=== PATIENT | female | born 1940 | race Caucasian/White ===

== ENCOUNTER 2017-11-27 17:07 | Observation (INO) | payer MEDICARE, OTHER ==
[~2017-11-27] VITALS: Ht 165.1 cm; Wt 68.0 kg
[~2017-11-27 17:07] MED LIST: AUGM875T PO; CITRTAB7 PO; LEXA20TA PO; LIPI10TA PO; OMEP20TA39 PO
[2017-11-27 17:18] VITALS: BP 160/69; PULSE 71; RESP 18; TEMP 98.8; O2SAT 98
[2017-11-27 17:30] VITALS: BP 160/69; PULSE 71; RESP 18; TEMP 98.8; O2SAT 99
[2017-11-27] MEDS ORDERED: ACETAMINOPHEN 325 MG TAB PO ONE (17:30)
[2017-11-27] MEDS ORDERED: SODIUM CHLORIDE 0.9% FLUSH 10 ML FLUSH IVF PRN (17:30)
[2017-11-27 17:33] VITALS: BP_SYST 148; BP_SYST 156; BP_SYST 178; BP_DIAS 67; BP_DIAS 70; BP_DIAS 72; PULSE 68; RESP 18; RESP 20; O2SAT 99
--- NOTE | 2017-11-27 17:49 | PD ---
HPI Chief Complaint: Altered Mental Status Time Seen by Provider: 17:27 Travel History International Travel<30 days: No Contact w/Intl Traveler<30days: No Traveled to known affect area: No History of Present Illness HPI 77-year-old female presents emergency department via [facility] from home complaining of confusion and weakness that started after eating today approximately 4p today. Says that [facility] was called approximately 1 hour later. Upon my evaluation, patient says her symptoms are resolved. She had an episode yesterday as well with similar symptoms that resolved spontaneously. At that point, patient was walking out to the garage taking care of her dogs when she started having similar symptoms. says that patient had to sit down where the symptoms resolved spontaneously over several minutes. describes the episodes as patient developing a headache and being confused. Also demonstrated the inability to walk. Again, her symptoms resolved spontaneously today. Says she was recently prescribed lisinopril for her blood pressure and she started this medication yesterday. Patient suspects that maybe this is the cause of her symptoms. Patient says that she fell hitting her head and neck in August. Says she was evaluated however, did not have imaging of her neck. Says that she golfed Tuesday and this may have exacerbated her head and neck pain. Patient says that she is in [place] 4-5 months the year and returns home to [place] for the rest of the year. 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 She has a neurologist in [place] he follows her tremors. Says she had global amnesia several years ago that resolved spontaneously. [facility] Past Medical History Cardiovascular Problems: Yes (HTN ) Tubal Ligation: Yes Past Surgical History Other Surgery: Yes (BILAT BREAST BX) Social History Alcohol Use: Yes (nightly) Tobacco Use: No Substance Use: No Allergies-Medications (Allergen,Severity, Reaction): Coded Allergies: ibuprofen (Unverified Allergy, Severe, Respiratory Failure, 04/12/17) Reported Meds & Prescriptions Reported Meds & Active Scripts Active Reported Escitalopram (Escitalopram Oxalate) 10 Mg Tab 10 Mg PO DAILY Lisinopril 10 Mg Tab 10 Mg PO DAILY Review of Systems Except as stated in HPI: all other systems reviewed are Neg Physical Exam Narrative GENERAL: Well-developed well-nourished in no apparent distress, slight resting head tremor SKIN: Focused skin assessment warm/dry. HEAD: Atraumatic. Normocephalic. EYES: Pupils equal and round. No scleral icterus. No injection or drainage. ENT: No nasal bleeding or discharge. Mucous membranes pink and moist. NECK: Trachea midline. No JVD. No midline tenderness CARDIOVASCULAR: Regular rate and rhythm. No murmur appreciated. RESPIRATORY: No accessory muscle use. Clear to auscultation. Breath sounds equal bilaterally. GASTROINTESTINAL: Abdomen soft, non-tender, nondistended. Hepatic and splenic margins not palpable. MUSCULOSKELETAL: No obvious deformities. No clubbing. No cyanosis. No edema. NEUROLOGICAL: Awake and alert. No obvious cranial nerve deficits. Motor grossly within normal limits. Normal speech. Negative pronator drift, rapid alternating movements, heel to stratton, finger-nose normal. Grade 5 out of 5 upper lower extremities PSYCHIATRIC: Appropriate mood and affect; insight and judgment normal. Data Data Last Documented VS Vital Signs Date Time Temp Pulse Resp B/P (MAP) Pulse Ox O2 Delivery O2 Flow Rate FiO2 11/27/17 19:29 15 11/27/17 19:19 98.2 67 169/74 (105) 98 Room Air Orders Orders Electrocardiogram (11/27/17 17:27) Ammonia (11/27/17 17:27) Complete Blood Count With Diff (11/27/17 17:27) Comprehensive Metabolic Panel (11/27/17 17:27) Creatine Kinase (Cpk) (11/27/17 17:27) Prothrombin Time / Inr (Pt) (11/27/17 17:27) Act Partial Throm Time (Ptt) (11/27/17 17:27) Troponin I (11/27/17 17:27) Thyroid Stimulating Hormone (11/27/17 17:27) Urinalysis - C+S If Indicated (11/27/17 17:27) Ct Brain W/O Iv Contrast(Rout) (11/27/17 17:27) Ecg Monitoring (11/27/17 17:27) Iv Access Insert/Monitor (11/27/17 17:27) Oximetry (11/27/17 17:27) Sodium Chloride 0.9% Flush (Ns Flush) (11/27/17 17:30) Acetaminophen (Tylenol) (11/27/17 17:30) Orthostatic Vital Signs (11/27/17 17:27) Ct Cerv Spine W/O Contrast (11/27/17 ) Aspirin Chew (Aspirin Chew) (11/27/17 19:15) Ondansetron Inj (Zofran Inj) (11/27/17 19:45) Admit Order (Ed Use Only) (11/27/17 19:32) Labs Laboratory Tests Test 11/27/17 17:59 White Blood Count 6.5 TH/MM3 Red Blood Count 4.08 MIL/MM3 Hemoglobin 13.9 GM/DL Hematocrit 40.4 % Mean Corpuscular Volume 99.1 FL Mean Corpuscular Hemoglobin 34.2 PG Mean Corpuscular Hemoglobin Concent 34.5 % Red Cell Distribution Width 13.3 % Platelet Count 180 TH/MM3 Mean Platelet Volume 9.2 FL Neutrophils (%) (Auto) 50.8 % Lymphocytes (%) (Auto) 37.8 % Monocytes (%) (Auto) 8.0 % Eosinophils (%) (Auto) 3.0 % Basophils (%) (Auto) 0.4 % Neutrophils # (Auto) 3.3 TH/MM3 Lymphocytes # (Auto) 2.4 TH/MM3 Monocytes # (Auto) 0.5 TH/MM3 Eosinophils # (Auto) 0.2 TH/MM3 Basophils # (Auto) 0.0 TH/MM3 CBC Comment DIFF FINAL Differential Comment Prothrombin Time 10.1 SEC Prothromb Time International Ratio 1.0 RATIO Activated Partial Thromboplast Time 30.8 SEC Blood Urea Nitrogen 15 MG/DL Creatinine 0.95 MG/DL Random Glucose 88 MG/DL Total Protein 7.5 GM/DL Albumin 3.7 GM/DL Calcium Level 8.6 MG/DL Alkaline Phosphatase 80 U/L Aspartate Amino Transf (AST/SGOT) 17 U/L Alanine Aminotransferase (ALT/SGPT) 19 U/L Total Bilirubin 0.3 MG/DL Sodium Level 134 MEQ/L Potassium Level 3.9 MEQ/L Chloride Level 100 MEQ/L Carbon Dioxide Level 25.6 MEQ/L Anion Gap 8 MEQ/L Estimat Glomerular Filtration Rate 57 ML/MIN Ammonia 13 MCMOL/L Total Creatine Kinase 98 U/L Troponin I LESS THAN 0.02 NG/ML Thyroid Stimulating Hormone 3rd Gen 1.170 uIU/ML MDM Medical Decision Making Medical Screen Exam Complete: Yes Emergency Medical Condition: Yes Differential Diagnosis TIA, vasovagal symptoms, dehydration, UTI, hypotension Narrative Course 77-year-old female with a history of hypertension and anxiety presents emergency department via [facility] from home complaining of confusion and weakness that started after eating today approximately 4p today. Says that [facility] was called approximately 1 hour later. Upon my evaluation, patient says her symptoms are resolved. She had an episode yesterday as well with similar symptoms that resolved spontaneously. At that point, patient was walking out to the garage taking care of her dogs when she started having similar symptoms. says that patient had to sit down where the symptoms resolved spontaneously over several minutes. describes the episodes as patient developing a headache and being confused. Also demonstrated the inability to walk. Again, her symptoms resolved spontaneously today. Says she was recently prescribed lisinopril for her blood pressure and she started this medication yesterday. Patient suspects that maybe this is the cause of her symptoms. Patient says that she fell hitting her head and neck in August. Says she was evaluated however, did not have imaging of her neck. Says that she golfed Tuesday and this may have exacerbated her head and neck pain. Patient says that she is in [place] 4-5 months the year and returns home to [place] for the rest of the year. 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 She has a neurologist in [place] he follows her tremors. Says she had global amnesia several years ago that resolved spontaneously. Says she has never had carotid ultrasounds. Currently she complains of a headache located in the top of her head rated 6-7/ 10, nonradiating and aching. Denies blurred vision. Vital signs are stable. Physical exam findings essentially unremarkable except for a fine head tremor that is normal per patient. Labs and imaging studies ordered. Last Impressions Head CT 11/27/17 1727 Signed Impressions: Service Date/Time: Monday, November 27, 2017 17:55 - CONCLUSION: Normal examination. Salty Younger MD Cervical Spine CT 11/27/17 0000 Signed Impressions: Service Date/Time: Monday, November 27, 2017 17:55 - CONCLUSION: Ipiqihuf-ow-cegjfg degenerative changes are noted as above. Salty Younger MD Tylenol and aspirin administered for her headache. Patient will admitted for TIA workup. Consult neuro. Diagnosis Primary Impression: TIA (transient ischemic attack) Qualified Codes: G45.8 - Other transient cerebral ischemic attacks and related syndromes Admitting Information Admitting Physician Requests: Admit Condition: Stable Ana María Carrasco Nov 27, 2017 17:49
[2017-11-27 18:07] LABS: AUTOMATED NEUTROPHIL # 3.3 TH/MM3 (1.8-7.7); BASOPHIL % 0.4 % (0.0-2.0); EOSINOPHIL # 0.2 TH/MM3 (0-0.4); HEMATOCRIT 40.4 % (35.0-46.0); HEMOGLOBIN 13.9 GM/DL (11.6-15.3); LYMPH % 37.8 % (9.0-44.0); LYMPHOCYTE # 2.4 TH/MM3 (1.0-4.8); MEAN CELL VOLUME 99.1 FL (80.0-100.0); MEAN CORPUSCULAR HEMOGLOBIN 34.2 PG (27.0-34.0); MEAN CORPUSCULAR HGB CONC 34.5 % (32.0-36.0); MEAN PLATELET VOLUME 9.2 FL (7.0-11.0); MONOCYTE # 0.5 TH/MM3 (0-0.9); NEUT % 50.8 % (16.0-70.0); PLATELET COUNT 180 TH/MM3 (150-450); RED BLOOD COUNT 4.08 MIL/MM3 (4.00-5.30); RED CELL DISTRIBUTION WIDTH 13.3 % (11.6-17.2); WHITE BLOOD COUNT 6.5 TH/MM3 (4.0-11.0)
--- NOTE | 2017-11-27 18:14 | RADRPT ---
EXAM DATE/TIME: 11/27/2017 17:55 [facility] COMPARISON: No previous studies available for comparison. INDICATIONS : Altered mental status with weakness past 2 days. RADIATION DOSE: 46.36 CTDIvol (mGy) MEDICAL HISTORY : Cardiovascular disease. Hypertension. SURGICAL HISTORY : None. ENCOUNTER: Initial ACUITY: 1 day PAIN SCALE: 0/10 LOCATION: cranial TECHNIQUE: Multiple contiguous axial images were obtained of the head. Using automated exposure control and adj ustment of the mA and/or kV according to patient size, radiation dose was kept as low as reasonably a chievable to obtain optimal diagnostic quality images. DICOM format image data is available electro nically for review and comparison. FINDINGS: CEREBRUM: The ventricles are normal for age. No evidence of midline shift, mass lesion, hemorrhage or acute in farction. No extra-axial fluid collections are seen. POSTERIOR FOSSA: The cerebellum and brainstem are intact. The 4th ventricle is midline. The cerebellopontine angle i s unremarkable. EXTRACRANIAL: The visualized portion of the orbits is intact. SKULL: The calvaria is intact. No evidence of skull fracture. CONCLUSION: Normal examination. Salty Younger MD on November 27, 2017 at 18:11 Board Certified Radiologist. This report was verified electronically.
--- NOTE | 2017-11-27 18:16 | RADRPT ---
EXAM DATE/TIME: 11/27/2017 17:55 [facility] COMPARISON: No previous studies available for comparison. INDICATIONS : Altered mental status with weakness past 2 days. RADIATION DOSE: 40.39 CTDIvol (mGy) MEDICAL HISTORY : Cardiovascular disease. Hypertension. SURGICAL HISTORY : None. ENCOUNTER: Initial ACUITY: 1 day PAIN SCALE: 0/10 LOCATION: neck TECHNIQUE: Volumetric scanning of the cervical spine was performed. Multiplanar reconstructions in the sagittal, coronal and oblique axial planes were performed. Using automated exposure control and adjustment o f the mA and/or kV according to patient size, radiation dose was kept as low as reasonably achievable to obtain optimal diagnostic quality images. DICOM format image data is available electronically f or review and comparison. FINDINGS: There is severe disc space narrowing and prominent endplate sclerosis and osteophytosis at C5-6. Mode [id number] degenerative disc disease at C6-7 mild disc space narrowing at C4-5 with prominent ant erior osteophyte formation. Grade 1 anterolisthesis of C4 on C5 and retrolisthesis of C5 on C6. The o dontoid process is intact. No prevertebral soft tissue swelling or compression deformity. There is mo derate uncovertebral hypertrophy at C5-6 and C6-7. No fractures are seen. There is moderate foraminal narrowing at C4-5 on the right secondary to facet arthropathy and mild uncovertebral hypertrophy. Se cole bilateral foraminal stenosis at C5-6 secondary to uncovertebral hypertrophy. There is also moder ate to severe canal stenosis at this level with mild impression on the cord suspected. Mild canal marc rowing at C6-7 secondary to posterior disc osteophyte complex eccentric to the right. CONCLUSION: Mcxtimvp-he-mhryfq degenerative changes are noted as above. Salty Younger MD on November 27, 2017 at 18:13 Board Certified Radiologist. This report was verified electronically.
[2017-11-27 18:19] LABS: PROTHROMBIN TIME - PATIENT 10.1 SEC (9.8-11.6)
[2017-11-27 18:39] LABS: ALT (GPT) 19 U/L (10-53)
[2017-11-27 18:55] LABS: ALBUMIN 3.7 GM/DL (3.4-5.0); ALKALINE PHOSPHATASE 80 U/L (45-117); AST (GOT) 17 U/L (15-37); BICARBONATE 25.6 MEQ/L (21.0-32.0); BLOOD UREA NITROGEN 15 MG/DL (7-18); CALCIUM 8.6 MG/DL (8.5-10.1); CHLORIDE 100 MEQ/L (98-107); CREATININE 0.95 MG/DL (0.50-1.00); GLOMERULAR FILTRATION RATE 57 ML/MIN (>89); GLUCOSE,RANDOM 88 MG/DL (74-106); SODIUM (NA) 134 MEQ/L (136-145); TOTAL BILIRUBIN ADULT 0.3 MG/DL (0.2-1.0); TOTAL PROTEIN 7.5 GM/DL (6.4-8.2); TROPONIN I LESS THAN 0.02 NG/ML (0.02-0.05)
[2017-11-27] MEDS ORDERED: ESCI10TA PO (19:01)
[2017-11-27] MEDS ORDERED: LISI10TA3 PO (19:01)
[2017-11-27] MEDS ORDERED: ASPIRIN 81 MG CHEW TAB CHEW ONE (19:15)
[2017-11-27 19:19] VITALS: BP 169/74; PULSE 67; RESP 15; TEMP 98.2; O2SAT 98
[2017-11-27] MEDS ORDERED: ONDANSETRON HCL 4 MG/2 ML VIAL IV PUSH ONE (19:45)
[2017-11-27] MEDS ORDERED: DEXTROSE 50% IN WATER 50 ML VIAL(D50) IV PUSH PRN (20:15)
[2017-11-27] MEDS ORDERED: SODIUM CHLORIDE 0.9% FLUSH 10 ML FLUSH IV FLUSH PRN (20:15)
[2017-11-27] MEDS ORDERED: GLUCAGON 1 MG/ML VIAL OTHER PRN (20:15)
--- NOTE | 2017-11-27 20:32 | HHI.HP ---
[facility] Nanda Cunningham MD Admission Diagnosis TIA Diagnoses: Travel History International Travel<30 Days: No Contact w/Intl Traveler <30 Da: No Traveled to Known Affected Are: No History of Present Illness 77-year-old female with a past medical history significant for hypertension and depression presents to the emergency department for evaluation of altered mental status and weakness. The patient had her first episode yesterday that involved visual spotting, dizziness and stumbling when trying to walk that she states lasted approximately one hour. The patient reports she went to rest and her symptoms resolved. Today the patient had similar symptoms after lunch and 2 glasses of wine. She states that her speech became mumbled and slurred. She also states that her had to help her walk. She endorses weakness in addition to confusion that prevented her from ambulating without help. The patient reports she just started taking lisinopril yesterday. She has never had similar episodes. She denies any fever/chills. No chest pain or shortness of breath. No cough. No nausea/vomiting/diarrhea/abdominal pain. Patient does complain of neck pain which has been chronic since August when she sustained a fall. She was diagnosed with whiplash however did not have any imaging done. She reports the neck pain returns when she plays golf. Review of Systems Except as stated in HPI: all other systems reviewed are Neg Past Family Social History Past Medical History Hypertension Depression Past Surgical History BTL Breast biopsy 2 Tonsillectomy Reported Medications Reported Meds & Active Scripts Active Reported Escitalopram (Escitalopram Oxalate) 10 Mg Tab 10 Mg PO DAILY Lisinopril 10 Mg Tab 10 Mg PO DAILY Allergies: Coded Allergies: ibuprofen (Unverified Allergy, Severe, Respiratory Failure, 04/12/17) Family History Negative for CAD/DM Social History Denies tobacco or illicit drugs. Occasional alcohol. Physical Exam Vital Signs Vital Signs Date Time Temp Pulse Resp B/P (MAP) Pulse Ox O2 Delivery O2 Flow Rate FiO2 11/27/17 19:29 15 11/27/17 19:19 98.2 67 15 169/74 (105) 98 Room Air 11/27/17 17:33 66 18 156/67 (96) 68 20 178/72 (107) 78 20 148/70 (96) 11/27/17 17:33 68 18 99 Room Air 11/27/17 17:30 73 18 98 Room Air 11/27/17 17:30 98.8 71 18 160/69 (99) 99 Room Air 11/27/17 17:18 98.8 71 18 160/69 (99) 98 Physical Exam GENERAL: female lying in bed SKIN: No rashes, ecchymoses or lesions. Cool and dry. HEAD: Atraumatic. Normocephalic. No temporal or scalp tenderness. EYES: Pupils equal round and reactive. Extraocular motions intact. No scleral icterus. No injection or drainage. ENT: Nose without bleeding, purulent drainage or septal hematoma. Throat without erythema, tonsillar hypertrophy or exudate. Uvula midline. Airway patent. NECK: Trachea midline. No JVD or lymphadenopathy. Supple, nontender, no meningeal signs. CARDIOVASCULAR: Regular rate and rhythm without murmurs, gallops, or rubs. RESPIRATORY: Clear to auscultation. Breath sounds equal bilaterally. No wheezes , rales, or rhonchi. GASTROINTESTINAL: Abdomen soft, non-tender, nondistended. No hepato-splenomegaly , or palpable masses. No guarding. MUSCULOSKELETAL: Extremities without clubbing, cyanosis, or edema. No joint tenderness, effusion, or edema noted. No calf tenderness. Negative Homans sign bilaterally. NEUROLOGICAL: Awake and alert. Cranial nerves II through XII intact. Motor and sensory within normal limits. Five out of 5 muscle strength in all muscle groups. Normal speech. Laboratory Laboratory Tests Test 11/27/17 17:59 White Blood Count 6.5 Red Blood Count 4.08 Hemoglobin 13.9 Hematocrit 40.4 Mean Corpuscular Volume 99.1 Mean Corpuscular Hemoglobin 34.2 Mean Corpuscular Hemoglobin Concent 34.5 Red Cell Distribution Width 13.3 Platelet Count 180 Mean Platelet Volume 9.2 Neutrophils (%) (Auto) 50.8 Lymphocytes (%) (Auto) 37.8 Monocytes (%) (Auto) 8.0 Eosinophils (%) (Auto) 3.0 Basophils (%) (Auto) 0.4 Neutrophils # (Auto) 3.3 Lymphocytes # (Auto) 2.4 Monocytes # (Auto) 0.5 Eosinophils # (Auto) 0.2 Basophils # (Auto) 0.0 CBC Comment DIFF FINAL Differential Comment Prothrombin Time 10.1 Prothromb Time International Ratio 1.0 Activated Partial Thromboplast Time 30.8 Blood Urea Nitrogen 15 Creatinine 0.95 Random Glucose 88 Total Protein 7.5 Albumin 3.7 Calcium Level 8.6 Alkaline Phosphatase 80 Aspartate Amino Transf (AST/SGOT) 17 Alanine Aminotransferase (ALT/SGPT) 19 Total Bilirubin 0.3 Sodium Level 134 Potassium Level 3.9 Chloride Level 100 Carbon Dioxide Level 25.6 Anion Gap 8 Estimat Glomerular Filtration Rate 57 Ammonia 13 Total Creatine Kinase 98 Troponin I LESS THAN 0.02 Thyroid Stimulating Hormone 3rd Gen 1.170 Result Diagram: 11/27/17175811/27/171758 Caprinmyriam VTE Risk Assessment Caprinmyriam VTE Risk Assessment: Mod/High Risk (score >= 2) Caprini Risk Assessment Model Point Value = 1 Point Value = 2 Point Value = 3 Point Value = 5 Age 41-60 Minor surgery BMI > 25 kg/m2 Swollen legs Varicose veins or History of unexplained or recurrent spontaneous Oral contraceptives or hormone replacement Sepsis (< 1 month) Serious lung disease, including pneumonia (< 1 month) Abnormal pulmonary function Acute myocardial infarction Congestive heart failure (< 1 month) History of inflammatory bowel disease Medical patient at bed rest Age 61-74 Arthroscopic surgery Major open surgery (> 45 min) Laparoscopic surgery (> 45 min) Malignancy Confined to bed (> 72 hours) Immobilizing plaster cast Central venous access Age >= 75 History of VTE Family history of VTE Factor V Leiden Prothrombin [id number] Lupus anticoagulant Anticardiolipin antibodies Elevated serum homocysteine Heparin-induced thrombocytopenia Other congenital or acquired thrombophilia Stroke (< 1 month) Elective arthroplasty Hip, pelvis, or leg fracture Acute spinal cord injury (< 1 month) Prophylaxis Regimen Total Risk Factor Score Risk Level Prophylaxis Regimen 0-1 Low Early ambulation 2 Moderate Order ONE of the following: *Sequential Compression Device (SCD) *Heparin 5000 units SQ BID 3-4 Higher Order ONE of the following medications: *Heparin 5000 units SQ TID *Enoxaparin/Lovenox 40 mg SQ daily (WT < 150 kg, CrCl > 30 mL/min) *Enoxaparin/Lovenox 30 mg SQ daily (WT < 150 kg, CrCl > 10-29 mL/min) *Enoxaparin/Lovenox 30 mg SQ BID (WT < 150 kg, CrCl > 30 mL/min) AND/OR *Sequential Compression Device (SCD) 5 or more Highest Order ONE of the following medications: *Heparin 5000 units SQ TID (Preferred with Epidurals) *Enoxaparin/Lovenox 40 mg SQ daily (WT < 150 kg, CrCl > 30 mL/min) *Enoxaparin/Lovenox 30 mg SQ daily (WT < 150 kg, CrCl > 10-29 mL/min) *Enoxaparin/Lovenox 30 mg SQ BID (WT < 150 kg, CrCl > 30 mL/min) AND *Sequential Compression Device (SCD) Assessment and Plan Assessment and Plan Assessment/plan: 1. TIA/weakness/confusion Head CT negative Aspirin MRI/MRA brain and carotid ultrasound pending Neurology consulted, appreciate recommendations Symptoms may be secondary to orthostatic hypotension or initiation of lisinopril : Holding lisinopril, orthostatic vital signs 2. Depression Continue home Lexapro 3. Neck pain Status post fall in August CT of the cervical spine showed moderate to severe degenerative changes without acute process FEN NPO NS at 70 cc/hr Electrolytes: Monitor and replete when necessary Heparin Elayne Saunders MD Nov 27, 2017 20:32
[2017-11-27] MEDS: INSULIN ASPART SUPPLEMENTAL SCALE SQ SCH (21:00)
[2017-11-27] MEDS: HEPARIN SODIUM - SQ 10,000 UNITS/ML VIAL SQ SCH (21:00)
--- NOTE | 2017-11-27 21:14 | RADRPT ---
EXAM DATE/TIME: 11/27/2017 21:31 [facility] COMPARISON: No previous studies available for comparison. INDICATIONS : Cerebrovascular accident. MEDICAL HISTORY : Hypertension. Gastroesophageal reflux disease. SURGICAL HISTORY : Tubal ligation. Bilateral breast biopsy. ENCOUNTER: Initial ACUITY: 1 day PAIN SCORE: 0/10 LOCATION: Bilateral neck PEAK SYSTOLIC VELOCITIES (cm/sec): ICA/CCA RATIO: Right: 1.2 Left: 1.6 ICA: Right: 70 Left: 128 CCA: Right: 59 Left: 81 ECA: Right: 124 Left: 102 VERTEBRAL: Right: 61 antegrade Left: 57 antegrade Elevated flow velocities and ICA/CCA ratios have been found to correlate with increased degrees of vessel stenosis, calculated as percentage of diameter relative to a normal segment of distal ICA/CCA FINDINGS: RIGHT CAROTID: No significant stenosis is visualized. The waveforms are within normal limits. LEFT CAROTID: No significant stenosis is visualized. The waveforms are within normal limits. VERTEBRAL ARTERIES: Antegrade flow is seen in both vertebral arteries. MISCELLANEOUS: None. CONCLUSION: No evidence for hemodynamically significant stenosis. Salty Younger MD on November 27, 2017 at 21:11 Board Certified Radiologist. This report was verified electronically.
[2017-11-27 22:55] LABS: AMORPHOUS SEDIMENT, URINE RARE; BILIRUBIN, URINE NEG (NEG); BLOOD, URINE NEG (NEG); GLUCOSE,URINE NEG (NEG); KETONE, URINE NEG (NEG); NITRITE,URINE NEG (NEG); PH, URINE 7.5 (5.0-8.5); SQUAMOUS EPITHELIAL CELL URINE 3 /hpf (0-5); TRANSITIONAL EPI CELLS, URINE 1 /hpf; URINE COLOR LIGHT-YELLOW (YELLW/STRAW); URINE LEUKOCYTE ESTERASE MOD (NEG)
[2017-11-27 23:43] VITALS: BP_SYST 123; BP_SYST 125; BP_DIAS 58; BP_DIAS 64; PULSE 67; RESP 18; TEMP 99.4; O2SAT 94
[2017-11-27] MEDS: SODIUM CHLOR 0.9% 1000 ML INJ 1,000 ML IV SCH (23:52)
[2017-11-27] MEDS: SODIUM CHLORIDE 0.9% FLUSH 10 ML FLUSH IV FLUSH SCH (23:52)
[2017-11-28] MEDS: ACETAMINOPHEN 325 MG TAB PO PRN ×2 (00:19→16:33)
[2017-11-28 07:01] LABS: CHOLESTEROL/ HDL RATIO 2.83 RATIO; HDL CHOLESTEROL 64.2 MG/DL (40.0-60.0)
[2017-11-28 07:31] VITALS: BP_SYST 110; BP_SYST 117; BP_SYST 118; BP_DIAS 55; BP_DIAS 59; BP_DIAS 66; PULSE 79; RESP 16; TEMP 98.7; O2SAT 95
[2017-11-28] MEDS: INSULIN ASPART SUPPLEMENTAL SCALE SQ SCH ×2 (08:00→12:00)
--- NOTE | 2017-11-28 08:48 | MB ---
cc: Pierre Guzmán MD DATE: 11/28/2017 HISTORY OF PRESENT ILLNESS: Ronda Conrad is a 77-year-old right-handed woman with hypertension. She was started on lisinopril last week. Her new blood pressure is up in the 70s. History of squamous cell skin cancer, migraine headaches when she was younger, transient global amnesia 5 years ago. She does not take an aspirin a day or any blood thinners. She felt foggy on Tuesday morning, foggy in her mind, had holes in the vision of her right eye, felt imbalance for about 45 minutes and it went away. Then again Tuesday morning, she noticed that she was foggy in her thinking and had some imbalance that lasted about an hour and came in the hospital. She did have a headache with that. She had a headache with some pollen and a history of headaches. She probably takes a Tylenol once a week. No chest pain or palpitations. On Tuesday, the episode that occurred yesterday, she said she had some difficulty getting her words out. Evidently, that was after lunch and 2 glasses of wine. REVIEW OF SYSTEMS: Denies diabetes, hypercholesterolemia, OR, stent, angioplasty, atrial fibrillation, Coumadin, renal, hepatic, or pulmonary disease, thyroid disease, lupus, ulcer, cancer, seizure, or known stroke. SOCIAL HISTORY: Not a smoker. Has 2 drinks a day. Lives with her . FAMILY HISTORY: Negative for cancer. Positive for seizures in a daughter who had an intracranial hemorrhage when she was younger. ALLERGIES: SHE IS ALLERGIC TO IBUPROFEN. MEDICATIONS: She is on escitalopram and lisinopril. EKG: Sinus rhythm according to the nursing staff. PHYSICAL EXAMINATION: VITAL SIGNS: Afebrile, 79, 16, standing blood pressure 117/66, no major hypertension, except 178/72. NECK: There were no carotid or ocular bruits. HEART: Regular rhythm. I did not detect a murmur. NEUROLOGIC: Pupils are equal. Visual mullins are full. There were no holes in the vision of the right eye at this time. Extraocular movements intact without nystagmus. Face is symmetric with normal sensation. Tongue was midline. There is no drift. Normal strength in upper and lower extremities bilaterally. DTRs are trace throughout. Toes are downgoing bilaterally. Pinprick was intact throughout. Vibratory sense; however, appeared to be diminished at least residential up the stratton bilaterally. She is not ataxic on [id number]. Temples are nontender bilaterally. Speech is fluent. She is not aphasic, consistent with her history. LABORATORY DATA: CBC is normal. UA was 6 white cells, moderate leukocyte esterase. Basic metabolic profile was essentially normal, as were LFTs, ammonia level, CPK, total protein, albumin. LDL cholesterol 106, total cholesterol 182. TSH is normal. Coags were normal. She had a CAT scan of her brain that was normal. She had a carotid ultrasound that was negative. 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 Review of the CAT scan of the brain, CT does appear to be normal. IMPRESSION: Possible transient ischemic attacks, migraine could also be considered. PLAN: We will check an MRI of the brain, MRA of the neck and cher-ae [place] of [place], an echocardiogram, Holter monitor, put her on an aspirin a day. She will need a statin started by the med team. Check a B12 level, a sedimentation rate, monitor on tele here. If her echo is negative, the Holter is on, the MRIs and MRAs are negative, she could go home on 325 of aspirin a day as long as her sed rate is normal. I have also ordered an EEG and as long as that is performed, she could be discharged. We do need the results of that before she goes, however. I can follow that up. MD KALPESH Allen/JOANA , 08:08 AM , 08:48 AM
--- NOTE | 2017-11-28 08:57 | EKG ---
Date Performed: 11/27/2017 Time Performed: 17:20:23 PTAGE: 77 years EKG: Sinus rhythm NORMAL ECG NO PREVIOUS TRACING DOCTOR: Nesha Cooper Interpretating Date/Time 11/28/2017 08:56:28
[2017-11-28] MEDS ORDERED: LISINOPRIL 10 MG TAB PO SCH (09:00)
[2017-11-28] MEDS: SODIUM CHLORIDE 0.9% FLUSH 10 ML FLUSH IV FLUSH SCH (09:00)
[2017-11-28] MEDS ORDERED: ESCITALOPRAM OXALATE 10 MG TAB PO SCH (09:00)
[2017-11-28] MEDS ORDERED: GADODIAMIDE PF 287 MG/ML 20 ML VIAL (for RAD MRI) IVCONTRAST ONE (09:16)
--- NOTE | 2017-11-28 09:38 | RADRPT ---
EXAM DATE/TIME: 11/28/2017 08:43 [facility] COMPARISON: No previous studies available for comparison. INDICATIONS : CVA. Confusion and weakness. CONTRAST: 20 cc Omniscan (gadodiamide) IV MEDICAL HISTORY : Hypertension. Gastroesophageal reflux disease. SURGICAL HISTORY : Tonsillectomy. Breast biopsy. ENCOUNTER: Initial ACUITY: 2 day PAIN SCORE: 0/10 LOCATION: head TECHNIQUE: Multiplanar, multisequence MRI of the brain was performed both prior to and following the administrat ion of paramagnetic contrast. FINDINGS: CEREBRUM: The ventricles are normal for age. No evidence of midline shift, mass lesion, hemorrhage or acute in farction. No extraaxial fluid collections are seen. The pituitary gland and suprasellar cistern are normal in configuration. WHITE MATTER: There are some scattered punctate areas of increased T2 signal in the white matter most consistent wi th mild microvascular ischemic demyelinative change. No significant signal abnormalities are seen in the white matter. POSTERIOR FOSSA: The cerebellum and brainstem are intact. The 4th ventricle is midline. The cerebellopontine angle is unremarkable. The cerebellar tonsils are normal in position. DIFFUSION IMAGING: No focal areas of restricted diffusion are seen. No evidence of acute infarction. EXTRACRANIAL: The visualized portions of the orbits and paranasal sinuses are unremarkable. POST-CONTRAST: No abnormal areas of parenchymal or dural enhancement. No evidence of blood-brain barrier breakdown. CONCLUSION: 1. No acute intracranial abnormality. 2. Incidental note made of some punctate areas of increased T2 signal in the white matter most consis tent with mild microvascular ischemic demyelinative change. Matt Kessler MD on November 28, 2017 at 9:32 Board Certified Radiologist. This report was verified electronically.
--- NOTE | 2017-11-28 09:48 | RADRPT ---
EXAM DATE/TIME: 11/28/2017 08:43 [facility] COMPARISON: MRI BRAIN W & W/O CONTRAST, November 28, 2017, 8:43. INDICATIONS : CVA. Confusion and weakness. MEDICAL HISTORY : Hypertension. Gastroesophageal reflux disease. SURGICAL HISTORY : Tonsillectomy. Breast biopsy. ENCOUNTER: Initial ACUITY: 2 day PAIN SCORE: 0/10 LOCATION: head Please note a normal MRA of the brain does not entirely exclude the possibility of a small aneurysm, nor the possibility of distal intracranial vessel disease. TECHNIQUE: 3D time of flight MRA was performed. Source images, multiplanar STS MIP, and 3D volume MIP reconstru ctions were reviewed. FINDINGS: There is excellent visualization of the major intracranial arteries out to the second-order branch ve ssels. There is no evidence for aneurysm, vessel truncation or stenosis, and no evidence for vascula r malformation. No flow seen in the anterior communicating artery. The right posterior cerebral art mini arises from the anterior circulation. Flow seen in the left PCOM. CONCLUSION: 1. No evidence of vessel truncation or aneurysm. 2. Incomplete levelock of [place]. Tavares Geller MD on November 28, 2017 at 9:42 Board Certified Radiologist. This report was verified electronically.
[2017-11-28] MEDS ORDERED: ASPIRIN EC 325 MG TABEC PO SCH (10:00)
[2017-11-28] MEDS: HEPARIN SODIUM - SQ 10,000 UNITS/ML VIAL SQ SCH (10:03)
[2017-11-28] MEDS: SODIUM CHLOR 0.9% 1000 ML INJ 1,000 ML IV SCH (10:48)
--- NOTE | 2017-11-28 14:19 | HHI.PR ---
Subjective Remarks Patient says she is feeling well. Feels like going home. Denies any chest pain or shortness of breath. Objective Vital Signs Date Time Temp Pulse Resp B/P (MAP) Pulse Ox O2 Delivery O2 Flow Rate FiO2 11/28/17 07:31 98.7 79 16 118/55 (76) 95 110/59 (76) 117/66 (83) 11/27/17 23:43 99.4 67 18 123/58 (79) 94 146/65 (92) 125/64 (84) 11/27/17 21:16 11/27/17 19:29 15 11/27/17 19:19 98.2 67 15 169/74 (105) 98 Room Air 11/27/17 17:33 66 18 156/67 (96) 68 20 178/72 (107) 78 20 148/70 (96) 11/27/17 17:33 68 18 99 Room Air 11/27/17 17:30 73 18 98 Room Air 11/27/17 17:30 98.8 71 18 160/69 (99) 99 Room Air 11/27/17 17:18 98.8 71 18 160/69 (99) 98 Result Diagram: 11/27/17175811/[id number]/171758 Objective Remarks GENERAL: She is sitting up in bed. Appears comfortable. Alert and oriented 4. SKIN: Warm and dry. HEAD: Normocephalic. EYES: No scleral icterus. No injection or drainage. NECK: Supple, trachea midline. No JVD. CARDIOVASCULAR: Regular rate and rhythm without murmurs, gallops, or rubs. RESPIRATORY: Breath sounds equal bilaterally. No accessory muscle use. GASTROINTESTINAL: Abdomen soft, non-tender, nondistended. MUSCULOSKELETAL: No cyanosis, or edema. BACK: Nontender without obvious deformity. No CVA tenderness. A/P Assessment and Plan // TIA/weakness/confusion Head CT negative Aspirin MRI/MRA brain and carotid ultrasound pending Neurology consulted, appreciate recommendations Symptoms may be secondary to orthostatic hypotension or initiation of lisinopril : Holding lisinopril, orthostatic vital signs = Pending workup. If echo is negative, Holter on, EEG negative, then patient can go. // Depression Continue home Lexapro //Neck pain Status post fall in August CT of the cervical spine showed moderate to severe degenerative changes without acute process FEN NPO NS at 70 cc/hr Electrolytes: Monitor and replete when necessary Heparin Discharge Planning If workup negative, can discharge home. Primo Barrios MD Nov 28, 2017 14:19
--- NOTE | 2017-11-28 16:06 | RADRPT ---
EXAM DATE/TIME: 11/28/2017 08:43 [facility] COMPARISON: No previous studies available for comparison. INDICATIONS : Stroke. Confusion and weakness. CONTRAST: 20 cc Omniscan (gadodiamide) IV MEDICAL HISTORY : Hypertension. Gastroesophageal reflux disease. SURGICAL HISTORY : Tonsillectomy. Breast biopsy. ENCOUNTER: Initial ACUITY: 2 day PAIN SCORE: 0/10 LOCATION: carotids Percent stenosis is calculated using the diameter of the stenotic region over the diameter of the nor mal distal internal carotid artery. TECHNIQUE: Bolus infused MRA of the extracranial circulation was performed using a neurovascular coil. Post pro cessing was performed including rotating subvolume maximum intensity projections of each carotid juan francisco ry, rotating full volume maximum intensity projections of both carotid arteries, sagittal and coronal sliding thin slab reformations of each carotid artery, and left oblique sliding thin slab reformatio n through the aortic arch to include the origin of the arch branch vessels. FINDINGS: AORTIC ARCH: There is a three vessel origin of the great vessels from the aorta. No evidence of ostial narrowing. RIGHT CAROTID: The common carotid artery is intact. The carotid bulb has a normal configuration without ulceration or narrowing. The internal carotid artery lumen is smooth without stenosis. The external carotid ar malorie is intact. LEFT CAROTID: The common carotid artery is intact. The carotid bulb has a normal configuration without ulceration or narrowing. The internal carotid artery lumen is smooth without stenosis. The external carotid ar malorie is intact. VERTEBRALS: The vertebral arteries have a symmetric diameter. No stenotic lesions are seen. CONCLUSION: Negative exam. Arch and cervical vessels are patent throughout. Jason Rivera MD on November 28, 2017 at 16:01 Board Certified Radiologist. This report was verified electronically.
[2017-11-28 16:43] LABS: HEMOGLOBIN A1C 5.3 % (4.3-6.0)
[2017-11-28 18:06] LABS: FOLATE 16.5 NG/ML (3.1-17.5)
--- NOTE | 2017-11-28 18:55 | MG ---
cc: Pierre Guzmán MD TEST NUMBER: [id number] Depression, anxiety, confusion, headache. A 9-10 Hz, 60 mV diffuse rhythm is noted. Some slowing is seen in the delta range, occasionally, diffusely. No hemisphere asymmetry is noted. It appears the patient falls asleep. Photic stimulation was performed without significant posterior driving. Hyperventilation not performed. IMPRESSION: Essentially unremarkable awake and sleep electroencephalogram. No evidence for a focal or diffuse abnormality. MD KALPESH Allen/FABIEN , 06:03 PM , 06:54 PM
--- NOTE | 2017-11-28 19:15 | ECHRPT ---
Indication: cva/tia CONCLUSIONS The left ventricular systolic function is normal with an estimated ejection fraction in the range of 60-65%. Normal left ventricular size. Wall thickness is normal. No regional wall motion abnormalities are present. Aortic valve sclerosis is present. BP: 117 / 66 HR: 79 Rhythm: Sinus MEASUREMENTS (Male / Female) Normal Values Technical Quality:Fair 2D ECHO LV Diastolic Diameter PLAX 3.7 cm 4.2 - 5.9 / 3.9 - 5.3 cm LV Systolic Diameter PLAX 2.7 cm IVS Diastolic Thickness 1.1 cm 0.6 - 1.0 / 0.6 - 0.9 cm LVPW Diastolic Thickness 1.1 cm 0.6 - 1.0 / 0.6 - 0.9 cm LV Relative Wall Thickness 0.6 RV Internal Dim ED PLAX 3.1 cm LVOT Diameter 1.8 cm LA Systolic Diameter LX 3.4 cm 3.0 - 4.0 / 2.7 - 3.8 cm M-MODE Aortic Root Diameter MM 2.3 cm LA Systolic Diameter MM 3.4 cm LA Ao Ratio MM 1.5 AV Cusp Separation MM 1.5 cm DOPPLER AV Peak Velocity 107.0 cm/s AV Peak Gradient 4.6 mmHg LVOT Peak Velocity 88.4 cm/s LVOT Peak Gradient 3.1 mmHg AV Area Cont Eq pk 2.1 cm MV Area PHT 2.0 cm Mitral E Point Velocity 55.8 cm/s Mitral A Point Velocity 87.4 cm/s Mitral E to A Ratio 0.6 TR Peak Velocity 178.0 cm/s TR Peak Gradient 12.7 mmHg PV Peak Velocity 89.6 cm/s PV Peak Gradient 3.2 mmHg FINDINGS LEFT VENTRICLE The left ventricular systolic function is normal with an estimated ejection fraction in the range of 60-65%. Normal left ventricular size. Wall thickness is normal. No regional wall motion abnormalities are present. RIGHT VENTRICLE Normal right ventricular size and systolic function. LEFT ATRIUM The left atrial size is normal. RIGHT ATRIUM The right atrial size is normal. ATRIAL SEPTUM Normal atrial septal thickness without atrial level shunting by limited color doppler interrogation. AORTA The aortic root and proximal ascending aorta are normal in size on limited imaging. MITRAL VALVE Structurally normal mitral valve. No mitral valve stenosis or regurgitation. AORTIC VALVE Trileaflet aortic valve. Aortic valve sclerosis is present. TRICUSPID VALVE Structurally normal tricuspid valve. There is trace tricuspid valve regurgitation. PULMONARY VALVE Trivial pulmonary valve regurgitation. VESSELS The inferior vena cava is normal in size. PERICARDIUM No pericardial effusion. Nesha Cooper MD, FACC (Electronically Signed) Final Date:28 November 2017 19:14
[2017-11-28] MEDS ORDERED: LIPI10TA PO (19:25)
[2017-11-28] MEDS ORDERED: ASPI325T33 PO (19:25)
[2017-11-29] MEDS ORDERED: ATORVASTATIN 10 MG TAB PO SCH (09:00)
--- NOTE | 2017-11-30 13:36 | HM ---
Date Performed: 11/28/2017 Time Performed: 14:28:00 HOOKUP DATE: 11/28/17 02:28:00 PM Mon ANALYSIS START TIME: 11/28/2017 2:33:00 PM ANALYSIS END TIME: 11/29/2017 2:33:22 PM PATIENT AGE: 77 PATIENT HEIGHT PATIENT WEIGHT DRUG LIST PATIENT DIAGNOSIS: TIA TEST NARRATIVE: The patient's average heart rate was 66 BPM. No episodes of tachycardia wer e noted. Heart rates less than 50 BPM were noted < 1% of the time. No pauses exceeding 2.0 secon ds were noted. 4 ventricular ectopics, which represented < 1% of the total beat count, were noted . The highest ventricular ectopic frequency occurred from 08:00 AM to 09:00 AM Tue. During this nhi e 2 VE(s) occurred. Ventricular ectopics were observed as 4 isolated beat(s) only. No couplets or r uns were noted. 22 supraventricular ectopics, which represented < 1% of the total beat count, wer e noted. The highest supraventricular ectopic frequency occurred from 08:00 PM to 09:00 PM Mon. Dur ing this time 4 SVE(s) occurred. In channel 1, a single episode of ST depression (defined as -1.0 mm or more) occurred at 03:06:32 PM Mon with a maximum depression of -1.2 mm. No episodes of ST dep ression (defined as -1.0 mm or more) were noted in channel 2. No episodes of ST depression (defined as -1.0 mm or more) were noted in channel 3. NO DIARY RETURNED TEST INTERPRETATION: Sinus rhythm rare PACs and PVCs Signed by : St latasha Jesus
== END 2017-11-28 21:14 | disposition home or self-care (01) ==
LOC: NEPC 17:07 → NEDA 19:34 → NEPGCP 21:21
PROVIDERS: ADMIT Internal Medicine; ATTEND Internal Medicine
DX: G45.9 Transient cerebral ischemic attack, unspecified (principal); Z79.899 Other long term (current) drug therapy; F32.9 Major depressive disorder, single episode, unspecified; Z91.81 History of falling; M54.2 Cervicalgia; I10 Essential (primary) hypertension; R26.2 Difficulty in walking, not elsewhere classified; R41.3 Other amnesia; R25.1 Tremor, unspecified; F41.9 Anxiety disorder, unspecified; I25.10 Atherosclerotic heart disease of native coronary artery without angina pectoris; Z79.82 Long term (current) use of aspirin; K21.9 Gastro-esophageal reflux disease without esophagitis; I63.9 Cerebral infarction, unspecified; M47.9 Spondylosis, unspecified
CPT/HCPCS: 70450; 70544; 70548; 70553; 72125; 80053; 80061; 81001; 82140; 82550; 82607; 82746; 82948; 83036; 84443; 84484; 85025; 85610; 85652; 85730; 92610; 93005; 93225; 93226; 93306; 93880; 95819; 96361; 96372; 96374; 97163; 97165; 99285; A9579; G0378; G8987; G8988; G8989; G8996; G8997; G8998; J1644; J2405; J7030